=== PATIENT | male | born 1960 | race Caucasian/White ===

== ENCOUNTER 2018-05-24 08:21 | Emergency (ER) | payer MEDICAID, OTHER | END 2018-05-24 09:18 | disposition home or self-care (01) | LOC: MADERS 08:21 | DX: H10.9 Unspecified conjunctivitis (principal); F17.210 Nicotine dependence, cigarettes, uncomplicated | CPT/HCPCS: 99282 ==

== ENCOUNTER 2018-05-26 10:44 | Emergency (ER) | payer OTHER ==
[2018-05-26] MEDS ORDERED: Proparacaine 0.5% Opth 15 ML BOT ONE (11:03)
[2018-05-26] MEDS ORDERED: HYDROcodone/Acetaminophen 5/325 mg Tablet ONE (11:35)
[2018-05-26] MEDS ORDERED: Erythromycin Base 0.5% Ophth Oint 3.5 gm Tube ONE (11:35)
[2018-05-26] MEDS ORDERED: Acetaminophen 325 MG TAB ONE (11:35)
[2018-05-26] MEDS ORDERED: Pilocarpine 2% Ophth Drops 15 ML BOT R EYE SCH (12:00)
[2018-05-26] MEDS ORDERED: Timolol 0.5% Ophth Soln 5 ml Bottle R EYE SCH (12:15)
== END 2018-05-26 12:01 | disposition home or self-care (01) ==
LOC: MADERS 10:44
DX: H40.9 Unspecified glaucoma (principal); J44.9 Chronic obstructive pulmonary disease, unspecified; F17.210 Nicotine dependence, cigarettes, uncomplicated
CPT/HCPCS: 99283